=== PATIENT | female | born 1940 | race Caucasian/White ===

== ENCOUNTER 2016-12-21 13:25 | Emergency (ER) | payer OTHER ==
[2016-12-21 13:34] VITALS: BP 163/51; PULSE 82; TEMP 98.1; BMI 28.1
--- NOTE | 2016-12-21 15:03 | PDOC ---
History of Present Illness - General History Source: Patient Exam Limitations: No Limitations - History of Present Illness Initial Comments: 12/21/16 15:57 The patient is a 76 year old female, with a significant past medical history of GERD who presents to the emergency department with L leg swelling for the past 5 days. Patient visited her PCP who ordered duplex of bilateral lower extremities. Today, patient had outpatient ultra sound which revealed L greater saphenous vein superficial thrombosis. Patient reports her swelling has progressively worsened today however denies any chest pain, SOB, headache. Patient was seen by another physician who prescribed her abx which has not helped. Patient was sent to the ED from outpatient Ultrasound for further evaluation. She denies fever, chills, abdominal pain, nausea, vomit, diarrhea or constipation. She denies dysuria, frequency, urgency or hematuria. Patient denies sick contacts or recent travel. Allergies: penicillins, poison ruma Past surgical history: Carpal tunnel syndrome Social history: None PCP: Dr. 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) HTN: No Hypercholesterolemia: No Liver Disease: No Seizures: No Thyroid Disease: No - Surgical History Orthopedic Surgery: Yes (CARPAL TUNNEL BILATERAL) - Suicide/Smoking/Psychosocial Hx Smoking History: Never smoked Have you smoked in the past 12 months: No Hx Alcohol Use: No Drug/Substance Use Hx: No Substance Use Type: None <Mariam Daley - Last Filed: 12/21/16 18:38> - Past Medical History Allergies/Adverse Reactions: Allergies Allergy/AdvReac Type Severity Reaction Status Date / Time Penicillins Allergy Verified 12/21/16 13:34 poison ruma extract Allergy Verified 12/21/16 13:34 Home Medications: Ambulatory Orders Ascorbate Calcium [Vitamin C] 500 mg PO DAILY 08/28/14 Fluticasone Prop 0.05% Nasal [Flonase -] 1 - 2 spray NS PRN 08/28/14 Multivitamins [Tab-A-Vit -] 1 tab PO DAILY 08/28/14 Apixaban [Eliquis -] 5 mg PO BID #28 tablet 12/21/16 Review of Systems - Review of Systems Able to Perform ROS?: Yes Comments:: 12/21/16 15:57 GENERAL/CONSTITUTIONAL: No fever or chills. No weakness. HEAD, EYES, EARS, NOSE AND THROAT: No change in vision. No ear pain or discharge. No sore throat. CARDIOVASCULAR: No chest pain or shortness of breath. RESPIRATORY: No cough, wheezing, or hemoptysis. GASTROINTESTINAL: No nausea, vomiting, diarrhea or constipation. GENITOURINARY: No dysuria, frequency, or change in urination. MUSCULOSKELETAL: No joint or muscle swelling or pain. No neck or back pain. SKIN: No rash NEUROLOGIC: No headache, vertigo, loss of consciousness, or change in strength/ sensation. ENDOCRINE: No increased thirst. No abnormal weight change. HEMATOLOGIC/LYMPHATIC: No anemia, easy bleeding, or history of blood clots. ALLERGIC/IMMUNOLOGIC: No hives or skin allergy. EXTREMITIES: + RLE swelling. <Eugenia Delgado - Last Filed: 12/21/16 15:57> *Physical Exam - Vital Signs Last Vital Signs Temp Pulse Resp BP Pulse Ox 98.1 F 82 18 163/51 98 12/21/16 13:28 12/21/16 13:28 12/21/16 13:28 12/21/16 13:28 12/21/16 13:28 - Physical Exam Comments: 12/21/16 15:58 GENERAL: Awake, alert, and fully oriented, in no acute distress HEAD: No signs of trauma EYES: PERRLA, EOMI, sclera anicteric, conjunctiva clear ENT: Auricles normal inspection, hearing grossly normal, nares patent, oropharynx clear without exudates. Moist mucosa NECK: Normal ROM, supple, no lymphadenopathy, JVD, or masses LUNGS: Breath sounds equal, clear to auscultation bilaterally. No wheezes, and no crackles HEART: Regular rate and rhythm, normal S1 and S2, no murmurs, rubs or gallops ABDOMEN: Soft, nontender, normoactive bowel sounds. No guarding, no rebound. No masses EXTREMITIES: Normal range of motion. No clubbing or cyanosis. No cords, erythema , or tenderness. +2+ pitting edema on RLE. + RLE warm to touch. NEUROLOGICAL: Cranial nerves II through XII grossly intact. Normal speech, normal gait SKIN: Warm, Dry, normal turgor, no rashes or lesions noted. <Eugenia Delgado - Last Filed: 12/21/16 15:57> - Vital Signs Last Vital Signs Temp Pulse Resp BP Pulse Ox 98.1 F 82 18 163/51 98 12/21/16 13:28 12/21/16 13:28 12/21/16 13:28 12/21/16 13:28 12/21/16 13:28 <Mariam Daley - Last Filed: 12/21/16 18:38> ED Treatment Course - LABORATORY CBC & Chemistry Diagram: 12/21/16 15:52 12/21/16 15:52 <Mariam Daley - Last Filed: 12/21/16 18:38> Medical Decision Making - Medical Decision Making 12/21/16 15:48 Paged Sarmad via phone answering service. Awaiting call back. 12/21/16 15:58 [phone] US/DUPLEX VASCUL US-1 LEG IMPRESSION: 1. No evidence of deep venous thrombosis. 2. Extensive superficial thrombosis with occlusion of the greater saphenous vein. Reported By: Martin Miranda MD <Eugenia Delgado - Last Filed: 12/21/16 15:57> - Medical Decision Making 12/21/16 17:25 a/p: 76yo female with L leg swelling -concern for poss dvt -ultrasound as outpt +dvt -will check labs and discuss with pmd 12/21/16 17:[address] Irene who recommends starting elaquis 5mg bid and follow up in [address] Bañuelos. <Mariam Daley - Last Filed: 12/21/16 18:38> *DC/Admit/Observation/Transfer - Attestations Scribe Attestion: 12/21/16 15:58 Documentation prepared by Eugenia Delgado, acting as medical support specialist for Mairam Daley DO, MD/. <Eugenia Delgado - Last Filed: 12/21/16 15:57> - Discharge Dispostion Admit: No - Attestations Physician Attestion: 12/21/16 18:01 I, Dr. Mariam Daley DO, attest that this document has been prepared under my direction and personally reviewed by me in its entirety. I further attest, that it accurately reflects all work, treatment, procedures and medical decision -making performed by me. <Mariam Daley - Last Filed: 12/21/16 18:38> Diagnosis at time of Disposition: DVT (deep venous thrombosis) - Discharge Dispostion Disposition: HOME Condition at time of disposition: Stable - Prescriptions Prescriptions: Apixaban [Eliquis -] 5 mg PO BID #28 tablet - Referrals Referrals: Vin Bañuelos MD, MD [Primary Care Provider] - - Patient Instructions Printed Discharge Instructions: DI for Deep Vein Thrombosis Additional Instructions: Please follow up with Dr. Bañuelos next week. Please take all meds as prescribed. Please return to the ED with any further concerns.
[2016-12-21 16:15] LABS: BASOPHIL 0.8 % (0-2.0); EOSINOPHIL 4.1 % (0-4.5); MCH 29.7 pg (25.7-33.7); MCHC 33.8 g/dl (32.0-36.0); MEAN CELL VOLUME 87.8 fl (80-96); MEAN PLT VOLUME 8.4 fl (7.5-11.1); NEUTROPHILS 56.5 % (42.8-82.8); PLATELET COUNT 240 K/MM3 (134-434); RDW 13.7 % (11.6-15.6); WHITE BLOOD COUNT 7.1 K/mm3 (4.0-10.0)
[2016-12-21 16:40] LABS: ALBUMIN 3.5 g/dl (3.4-5.0); ALK PHOS 115 U/L (45-117); ANION GAP 6 (8-16); BILIRUBIN,TOTAL 0.6 mg/dL (0.2-1.0); CALCIUM 8.8 mg/dL (8.5-10.1); CO2 29 mmol/L (21-32); CREATININE 0.7 mg/dL (0.55-1.02); GLUCOSE,RANDOM 90 mg/dL (74-106); SGOT/AST 11 U/L (15-37); SGPT/ALT 20 U/L (12-78); TOT PROT 6.4 g/dl (6.4-8.2)
[2016-12-21 16:41] LABS: INR 1.04 (0.82-1.09); PROTHROMBIN TIME (PATIENT) 11.8 SEC (9.98-11.88)
[2016-12-21 16:44] LABS: ACTIVATED PTT 31.3 SECONDS (26.9-34.4)
[2016-12-21] MEDS ORDERED: APIXABAN 5 MG TABLET PO ONE (17:43)
== END 2016-12-21 18:57 | disposition home or self-care (01) ==
LOC: JER 13:25
DX: I82.812 Embolism and thrombosis of superficial veins of left lower extremity (principal); Z79.01 Long term (current) use of anticoagulants; Z87.19 Personal history of other diseases of the digestive system; Z88.1 Allergy status to other antibiotic agents
CPT/HCPCS: 36415; 80053; 85025; 85610; 85730; 93971-TC; 99283-25

== ENCOUNTER 2022-01-01 09:00 | Inpatient (IN) | payer OTHER ==
[2022-01-01] MEDS: SODIUM CHLORIDE 1,000 ML IV SCH ×2 (09:20→23:24)
[2022-01-01 09:52] LABS: EOS % 2.7 % (0-4.5); HEMOGLOBIN 13.5 GM/dL (10.7-15.3); LYMPH % 20.7 % (8-40); MCH 30.5 pg (25.7-33.7); MCHC 34.5 g/dl (32.0-36.0); MEAN CELL VOLUME 88.5 fl (80-96); MEAN PLT VOLUME 8.3 fl (7.5-11.1); MONO % 6.2 % (3.8-10.2); NEUT % 69.4 % (42.8-82.8); PLATELET COUNT 226 10^3/uL (134-434); RDW 14.2 % (11.6-15.6)
[2022-01-01 10:00] LABS: ALBUMIN 3.4 g/dl (3.4-5.0)
[2022-01-01 10:01] LABS: BLOOD UREA NITROGEN 13.5 mg/dL (7-18)
[2022-01-01 10:04] LABS: CREATININE 0.8 mg/dL (0.55-1.3)
[2022-01-01 10:05] LABS: TOT PROT 6.3 g/dl (6.4-8.2)
[2022-01-01 10:06] LABS: BILIRUBIN,TOTAL 0.6 mg/dL (0.2-1)
[2022-01-01 10:19] LABS: ACTIVATED PTT 33.9 SECONDS (25.2-36.5); INR 1.06 (0.83-1.09); PROTHROMBIN TIME (PATIENT) 12.2 SEC (9.7-13.0)
[2022-01-01 11:13] LABS: EPI CELLS 14 /uL (0-25.1); HYALINE CASTS 0 /uL (0-3.1); URINE APPEARANCE CLEAR; URINE BACTERIA 71 /uL (0-1359); URINE BILIRUBIN NEGATIVE (NEGATIVE); URINE COLOR YELLOW; URINE GLUCOSE (UA) NEGATIVE (NEGATIVE); URINE KETONE NEGATIVE (NEGATIVE); URINE LEUK ESTERASE 1+ (NEGATIVE); URINE NITRITE NEGATIVE (NEGATIVE); URINE PROTEIN NEGATIVE (NEGATIVE); URINE RBC 12 /uL (0-23.9); URINE UROBILINOGEN 0.2 mg/dL (0.2-1.0); URINE WBC 7 /uL (0-25.8)
[2022-01-01] MEDS ORDERED: ASPIRIN 81 MG CHEWABLE TABLETS PO ONE (11:49)
[2022-01-01] MEDS ORDERED: ASPIRIN 81 MG CHEWABLE TABLETS ONE (11:57)
[2022-01-01] MEDS ORDERED: ACETAMINOPHEN 325 MG TABLET (FP) PO PRN (14:37)
[2022-01-01] MEDS ORDERED: MIRTAZAPINE 15 MG TABLET (FP) ONE (22:04)
[2022-01-01] MEDS ORDERED: HEPARIN NA (PORCINE) 5,000 UNITS/ML 1ML VIAL ONE (22:04)
[2022-01-01] MEDS: HEPARIN NA (PORCINE) 5,000 UNITS/ML 1ML VIAL SQ SCH (22:15)
[2022-01-01] MEDS: MIRTAZAPINE 15 MG TABLET (FP) PO SCH (22:15)
[2022-01-02 04:03] VITALS: BMI 25.5
[2022-01-02] MEDS: HEPARIN NA (PORCINE) 5,000 UNITS/ML 1ML VIAL SQ SCH ×2 (10:16→21:24)
[2022-01-02] MEDS: ASPIRIN 81 MG CHEWABLE TABLETS PO SCH (10:16)
[2022-01-02] MEDS: metoPROLOL SUCCINATE 25 MG TAB.SR.24H (FP) PO SCH (10:16)
[2022-01-02] MEDS: PANTOPRAZOLE 40 MG TABLET PO SCH (10:16)
[2022-01-02] MEDS: SODIUM CHLORIDE 1,000 ML IV SCH (10:16)
[2022-01-02] MEDS: MIRTAZAPINE 15 MG TABLET (FP) PO SCH (21:25)
[2022-01-02] MEDS ORDERED: ATORVASTATIN CA 20 MG TABLET (FP) PO SCH (22:00)
[2022-01-03] MEDS: SODIUM CHLORIDE 1,000 ML IV SCH (09:48)
[2022-01-03] MEDS: PANTOPRAZOLE 40 MG TABLET PO SCH (09:52)
[2022-01-03] MEDS: metoPROLOL SUCCINATE 25 MG TAB.SR.24H (FP) PO SCH (09:52)
[2022-01-03] MEDS: ASPIRIN 81 MG CHEWABLE TABLETS PO SCH (09:52)
[2022-01-03] MEDS: HEPARIN NA (PORCINE) 5,000 UNITS/ML 1ML VIAL SQ SCH (09:52)
[2022-01-03] MEDS ORDERED: CLOPIDOGREL BISULFATE 75 MG TABLET (FP) PO SCH (10:00)
[2022-01-03 15:44] VITALS: BP 147/65; PULSE 77; RESP 15; TEMP 99
== END 2022-01-03 17:04 | disposition home or self-care (01) | DRG 65 ==
LOC: JER 09:00 → JERBED 11:49 → J4W 23:01
PROVIDERS: ADMIT Family Medicine; ATTEND Family Medicine
DX: I63.9 Cerebral infarction, unspecified (principal); G45.9 Transient cerebral ischemic attack, unspecified; N39.0 Urinary tract infection, site not specified; I10 Essential (primary) hypertension; K21.9 Gastro-esophageal reflux disease without esophagitis; E78.5 Hyperlipidemia, unspecified
CPT/HCPCS: 36415; 70450-TC; 70496-TC; 70498-TC; 70551-TC; 80053; 80061; 81003; 82550; 82607; 82962; 83036; 84443; 84484; 85025; 85610; 85730; 86780; 86850; 86900; 86901; 87077; 87086; 93005; 93010; 93306-TC; 97116-GP; 97161-GP; 99285-25; C9803-CS; J1644; U0003; U0005

== ENCOUNTER 2022-03-24 15:30 | Emergency (ER) | payer OTHER ==
[2022-03-24 15:37] VITALS: RESP 16; BMI 27.3
[2022-03-24] MEDS ORDERED: SODIUM CHLORIDE 1,000 ML IV SCH (16:00)
[2022-03-24 16:54] LABS: BASO % 1.3 % (0-2.0); EOS % 0.8 % (0-4.5); HEMATOCRIT 37.7 % (32.4-45.2); HEMOGLOBIN 12.7 GM/dL (10.7-15.3); LYMPH % 7.5 % (8-40); MCH 30.3 pg (25.7-33.7); MCHC 33.8 g/dl (32.0-36.0); MEAN CELL VOLUME 89.7 fl (80-96); MONO % 6.7 % (3.8-10.2); NEUT % 83.7 % (42.8-82.8); PLATELET COUNT 230 10^3/uL (134-434); RBC 4.21 M/mm3 (3.60-5.2); RDW 14.2 % (11.6-15.6); WHITE BLOOD COUNT 4.9 K/mm3 (4.0-10.0)
[2022-03-24 17:01] LABS: INR 1.13 (0.83-1.09); PROTHROMBIN TIME (PATIENT) 13.1 SEC (9.7-13.0)
[2022-03-24 17:04] LABS: ACTIVATED PTT 29.4 SECONDS (25.2-36.5)
[2022-03-24 17:08] VITALS: BP 137/55; PULSE 74; TEMP 98.3
[2022-03-24 17:15] LABS: CALCIUM 8.7 mg/dL (8.5-10.1)
[2022-03-24 17:16] LABS: ALBUMIN 3.2 g/dl (3.4-5.0)
[2022-03-24 17:17] LABS: BLOOD UREA NITROGEN 18.2 mg/dL (7-18)
[2022-03-24 17:19] LABS: CREATININE 0.9 mg/dL (0.55-1.3)
[2022-03-24 17:22] LABS: BILIRUBIN,TOTAL 0.6 mg/dL (0.2-1)
[2022-03-24 17:40] LABS: EPI CELLS 6 /uL (0-25.1); HYALINE CASTS 0 /uL (0-3.1); URINE APPEARANCE CLEAR; URINE BACTERIA 110 /uL (0-1359); URINE BILIRUBIN NEGATIVE (NEGATIVE); URINE COLOR YELLOW; URINE GLUCOSE (UA) NEGATIVE (NEGATIVE); URINE KETONE TRACE (NEGATIVE); URINE LEUK ESTERASE TRACE (NEGATIVE); URINE NITRITE NEGATIVE (NEGATIVE); URINE PROTEIN NEGATIVE (NEGATIVE); URINE RBC 73 /uL (0-23.9); URINE WBC 15 /uL (0-25.8)
== END 2022-03-24 18:50 | disposition home or self-care (01) ==
LOC: JER 15:30
DX: R53.1 Weakness (principal)
CPT/HCPCS: 0241U-QW; 36415; 70450-TC; 71045-TC-FY; 80053; 80061; 81003; 82550; 82962; 83036; 84484; 85025; 85610; 85730; 86850; 86900; 86901; 93005; 93010; 99285-25